=== PATIENT | male | born 2000 | race Two or more races ===

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

== ENCOUNTER 2022-11-11 19:06 | Emergency (ER) | payer MEDICAID, OTHER ==
[~2022-11-11] VITALS: Ht 175.3 cm; Wt 67.1 kg
[2022-11-11 19:26] VITALS: BP 124/84; PULSE 74; RESP 18; O2SAT 96
== END 2022-11-12 01:38 | disposition left against medical advice (07) ==
LOC: ER 19:06
DX: T78.40XA Allergy, unspecified, initial encounter (principal); Z53.21 Procedure and treatment not carried out due to patient leaving prior to being seen by health care provider; X58.XXXA Exposure to other specified factors, initial encounter